=== PATIENT | male | born 1995 | race Caucasian/White ===

== ENCOUNTER 2019-01-06 16:33 | Emergency (ER) | payer MEDICAID ==
[~2019-01-06] VITALS: Ht 165.1 cm; Wt 74.8 kg
[2019-01-06 17:30] VITALS: Ht 165.1 cm; Wt 74.8 kg
[2019-01-06 20:09] VITALS: BP 120/67
== END 2019-01-06 20:09 | disposition home or self-care (01) ==
LOC: ED 16:33
DX: N50.811 Right testicular pain (principal); R35.0 Frequency of micturition
CPT/HCPCS: 82962; 87491; 87591; Q0092